=== PATIENT | male | born 1940 | race Caucasian/White ===

== ENCOUNTER 2018-09-09 11:12 | Inpatient (IN) ==
[2018-09-09] MEDS ORDERED: PANTOPRAZOLE 40 MG VIAL IV STA (11:33)
[2018-09-09] MEDS ORDERED: SODIUM CHLORIDE 0.9% 500 ML IV STA (11:33)
[2018-09-09] MEDS ORDERED: ONDANSETRON 4 MG/2 ML VIAL IV STA (11:33)
[2018-09-09 12:54] LABS: Basophils % 0.4 % (0.0-0.8); Eosinophils % 0.4 % (0.00-10.9); Hemoglobin 7.6 GM/DL (14.0-18.0); Immature Granulocytes % 0.5 %; Immature Granulocytes Absolute 0.04 #; Lymphocytes # 0.8 10*3/uL (1.4-4.0); Lymphocytes % 9.6 % (21.2-54.2); Mean Corpuscular HGB Conc 31.7 GM/DL (32-36); Mean Corpuscular Hemoglobin 30 PG (27-34); Mean Corpuscular Volume 93.4 FL (87-102); Mean Platelet Volume 10.5 FL (9.6-12.0); Monocytes # 0.6 10*3/uL (0.11-0.8); Neutrophils # 6.4 10*3/uL (1.4-7.4); Neutrophils % 82.1 % (38.7-73.9); Platelet Count 184 T/CUMM (130-400); Red Blood Count 2.57 MC/CUMM (3.8-5.5); Red Cell Distribution Width 14.6 % (9.3-17.3); White Blood Count 7.8 T/CUMM (4-12)
[2018-09-09 13:05] LABS: INR 1.4; Partial Thromboplastin Time 25.4 SECS (0-40)
[2018-09-09 13:13] LABS: Albumin 3.1 G/DL (3.4-5.0); Bilirubin,Total 0.8 MG/DL (0.2-1.0); Calcium 7.9 MG/DL (8.5-10.1); Osmolality,Calculated 275.9 MOS/KG (273-304); Total Protein 5.6 G/DL (6.4-8.3)
[2018-09-09 13:18] LABS: Potassium 6.1 MMOL/L (3.5-5.1)
[2018-09-09] MEDS ORDERED: DEXTROSE 50% 25 GM/50 ML VIAL IV STA (13:21)
[2018-09-09] MEDS ORDERED: INSULIN REGULAR 100 UNIT/ML IV STA (13:21)
[2018-09-09] MEDS ORDERED: SODIUM BICARBONATE 50 MEQ/50 ML VIAL IV STA (13:24)
[2018-09-09] MEDS ORDERED: DEXTROSE 50% 25 GM/50 ML SYRINGE IV ONE (13:43)
[2018-09-09] MEDS ORDERED: SODIUM BICARBONATE 50 MEQ/50 ML SYRINGE IV ONE (13:43)
[2018-09-09] MEDS ORDERED: ONDANSETRON 4 MG/2 ML VIAL IV PRN (14:36)
[2018-09-09] MEDS: SODIUM CHLORIDE 0.9% 1,000 ML IV SCH (15:28)
[2018-09-09 15:36] LABS: % Iron Saturation 4.3 % (18-50); Ferritin 39.5 ng/ml (26-388)
[2018-09-09 20:13] LABS: Hematocrit 20.9 VOL% (42.0-52.0); Hemoglobin 6.5 GM/DL (14.0-18.0)
[2018-09-09] MEDS ORDERED: SODIUM CHLORIDE 0.9% 1,000 ML IV PRN (20:23)
[2018-09-09] MEDS: CARVEDILOL 6.25 MG TABLET PO SCH (21:07)
[2018-09-10 05:57] LABS: Basophils % 0.4 % (0.0-0.8); Eosinophils # 0.2 10*3/uL (0.0-0.87); Eosinophils % 2.4 % (0.00-10.9); Hematocrit 24.8 VOL% (42.0-52.0); Immature Granulocytes % 0.4 %; Immature Granulocytes Absolute 0.03 #; Lymphocytes % 12.8 % (21.2-54.2); Mean Corpuscular HGB Conc 32.3 GM/DL (32-36); Mean Corpuscular Hemoglobin 30 PG (27-34); Mean Corpuscular Volume 92.2 FL (87-102); Mean Platelet Volume 11.8 FL (9.6-12.0); Monocytes # 1.4 10*3/uL (0.11-0.8); Monocytes % 17.4 % (1.7-12.7); Neutrophils # 5.4 10*3/uL (1.4-7.4); Neutrophils % 66.6 % (38.7-73.9); Platelet Count 159 T/CUMM (130-400); Red Blood Count 2.69 MC/CUMM (3.8-5.5); Red Cell Distribution Width 15.7 % (9.3-17.3); White Blood Count 8.1 T/CUMM (4-12)
[2018-09-10 06:15] LABS: Eosinophils 4 % (0-10); Hypochromasia 1+; Lymphocytes 11 % (20-55); Platelet Estimate Normal; Segmented Neutrophils 77 % (50-85); Total Cells Counted 100
[2018-09-10 07:56] LABS: Calcium 8.1 MG/DL (8.5-10.1); Osmolality,Calculated 277.5 MOS/KG (273-304); Potassium 5.8 MMOL/L (3.5-5.1)
[2018-09-10 08:01] LABS: Troponin I 0.195 NG/ML (0.00-0.045)
[2018-09-10] MEDS: SODIUM CHLORIDE 0.9% 1,000 ML IV SCH ×2 (09:50→23:56)
[2018-09-10] MEDS: LOSARTAN 25 MG TABLET PO SCH (09:51)
[2018-09-10] MEDS: ASPIRIN EC 81 MG TABLET PO SCH (09:51)
[2018-09-10] MEDS: CARVEDILOL 6.25 MG TABLET PO SCH ×4 (09:51→21:29)
[2018-09-10] MEDS: BUMETANIDE 1 MG TABLET PO SCH (09:51)
[2018-09-10] MEDS: PANTOPRAZOLE 40 MG TABLET PO SCH (09:52)
[2018-09-10 14:03] LABS: Hematocrit 23.8 VOL% (42.0-52.0); Hemoglobin 7.5 GM/DL (14.0-18.0)
[2018-09-10] MEDS ORDERED: SODIUM CHLORIDE 0.9% 1,000 ML IV PRN (14:24)
[2018-09-11 01:32] LABS: Basophils % 0.5 % (0.0-0.8); Eosinophils # 0.3 10*3/uL (0.0-0.87); Eosinophils % 3.1 % (0.00-10.9); Hematocrit 30.7 VOL% (42.0-52.0); Hemoglobin 9.4 GM/DL (14.0-18.0); Immature Granulocytes % 0.6 %; Immature Granulocytes Absolute 0.05 #; Lymphocytes # 1.1 10*3/uL (1.4-4.0); Mean Corpuscular HGB Conc 30.6 GM/DL (32-36); Mean Corpuscular Hemoglobin 29 PG (27-34); Mean Corpuscular Volume 94.8 FL (87-102); Mean Platelet Volume 9.7 FL (9.6-12.0); Monocytes # 1.9 10*3/uL (0.11-0.8); Monocytes % 21.8 % (1.7-12.7); Neutrophils # 5.5 10*3/uL (1.4-7.4); Platelet Count 198 T/CUMM (130-400); Red Blood Count 3.24 MC/CUMM (3.8-5.5); Red Cell Distribution Width 15.7 % (9.3-17.3); White Blood Count 8.8 T/CUMM (4-12)
[2018-09-11 01:33] LABS: Hematocrit 30.9 VOL% (42.0-52.0); Hemoglobin 9.5 GM/DL (14.0-18.0)
[2018-09-11 01:48] LABS: Calcium 7.7 MG/DL (8.5-10.1); Osmolality,Calculated 285.2 MOS/KG (273-304); Potassium 5.5 MMOL/L (3.5-5.1)
[2018-09-11 02:16] LABS: Lymphocytes 9 % (20-55); Metamyelocytes 1 %; Platelet Estimate Adequate; Segmented Neutrophils 82 % (50-85); Total Cells Counted 100
[2018-09-11 02:17] LABS: Hypochromasia Slight; Polychromasia Few
[2018-09-11] MEDS: SODIUM CHLORIDE 0.9% 1,000 ML IV SCH (05:41)
[2018-09-11] MEDS: BUMETANIDE 1 MG TABLET PO SCH (08:57)
[2018-09-11] MEDS: PANTOPRAZOLE 40 MG TABLET PO SCH (08:57)
[2018-09-11] MEDS: CARVEDILOL 6.25 MG TABLET PO SCH ×2 (08:58→20:51)
[2018-09-11] MEDS: ASPIRIN EC 81 MG TABLET PO SCH (08:58)
[2018-09-11] MEDS: LOSARTAN 25 MG TABLET PO SCH (08:59)
[2018-09-11] MEDS ORDERED: INFLUENZA VIRUS VACCINE 0.5 ML SYRINGE IM ONE (09:00)
[2018-09-11] MEDS ORDERED: FUROSEMIDE 40 MG/4 ML VIAL IV ONE (10:46)
[2018-09-11] MEDS ORDERED: FUROSEMIDE 20 MG/2 ML VIAL ONE (11:50)
[2018-09-11] MEDS: FUROSEMIDE 40 MG/4 ML VIAL IV SCH (17:28)
[2018-09-12 06:09] LABS: Basophils % 0.3 % (0.0-0.8); Eosinophils # 0.1 10*3/uL (0.0-0.87); Eosinophils % 1.1 % (0.00-10.9); Hematocrit 31.5 VOL% (42.0-52.0); Hemoglobin 9.4 GM/DL (14.0-18.0); Immature Granulocytes % 0.8 %; Immature Granulocytes Absolute 0.06 #; Lymphocytes # 0.9 10*3/uL (1.4-4.0); Lymphocytes % 10.9 % (21.2-54.2); Mean Corpuscular HGB Conc 29.8 GM/DL (32-36); Mean Corpuscular Hemoglobin 29 PG (27-34); Mean Corpuscular Volume 97.8 FL (87-102); Mean Platelet Volume 9.8 FL (9.6-12.0); Monocytes # 1.3 10*3/uL (0.11-0.8); Monocytes % 16.6 % (1.7-12.7); NRBC # 0.03 10*3/uL; Neutrophils # 5.6 10*3/uL (1.4-7.4); Neutrophils % 70.3 % (38.7-73.9); Platelet Count 209 T/CUMM (130-400); Red Blood Count 3.22 MC/CUMM (3.8-5.5); Red Cell Distribution Width 15.6 % (9.3-17.3); White Blood Count 7.9 T/CUMM (4-12)
[2018-09-12 06:40] LABS: Albumin 2.9 G/DL (3.4-5.0); Bilirubin,Total 0.5 MG/DL (0.2-1.0); Calcium 7.6 MG/DL (8.5-10.1); Osmolality,Calculated 283.5 MOS/KG (273-304)
[2018-09-12 06:44] LABS: Potassium 6.1 MMOL/L (3.5-5.1)
[2018-09-12] MEDS ORDERED: SODIUM POLYSTYRENE SULFATE 15 GM/60 ML BOTTLE PO ONE ×2 (06:48→15:37)
[2018-09-12 06:56] LABS: Eosinophils 1 % (0-10); Hypochromasia 1+; Lymphocytes 10 % (20-55); Ovalocytes Slight; Platelet Estimate Adequate; Segmented Neutrophils 73 % (50-85); Total Cells Counted 100
[2018-09-12] MEDS: FUROSEMIDE 40 MG/4 ML VIAL IV SCH ×2 (08:24→16:39)
[2018-09-12] MEDS: CARVEDILOL 6.25 MG TABLET PO SCH (08:28)
[2018-09-12] MEDS: ASPIRIN EC 81 MG TABLET PO SCH (08:28)
[2018-09-12] MEDS: PANTOPRAZOLE 40 MG TABLET PO SCH (08:29)
[2018-09-12] MEDS ORDERED: LACTULOSE 320 GM/480 ML BOTTLE RECTAL ONE (09:58)
[2018-09-12 11:09] LABS: Troponin I 0.613 NG/ML (0.00-0.045)
[2018-09-12] MEDS: LACTULOSE 20 GM/30 ML UDCUP PO SCH ×4 (11:46→22:48)
[2018-09-12] MEDS ORDERED: DOBUTamine 500 MG/250 ML PREMIX IV PRN ×2 (12:00→16:48)
[2018-09-12] MEDS: PHENYLEPHRINE DRIP 40 MG/250 ML PREMIX IV PRN ×2 (14:30→18:46)
[2018-09-12 16:33] LABS: Hematocrit 32.8 VOL% (42.0-52.0); Hemoglobin 9.6 GM/DL (14.0-18.0)
[2018-09-12] MEDS: DOBUTamine 500 MG/250 ML PREMIX IV SCH (17:14)
[2018-09-12 17:16] LABS: ABG Base Excess 1.4 MMOL/L (-2.5-2.5); ABG HCO3 31.9 MMOL/L (20-26); ABG Oxygen Saturation 99.5 % (95-100); ABG PO2 325.9 MM HG (80-95); ABG TCO2 34.7 MMOL/L (23-27)
[2018-09-12 17:18] LABS: ABG PH 7.164 (7.35-7.45)
[2018-09-12 17:19] LABS: ABG PCO2 90.8 MM HG (35-48)
[2018-09-12] MEDS ORDERED: SODIUM BICARBONATE 50 MEQ/50 ML SYRINGE IV ONE ×2 (17:23→17:24)
[2018-09-12] MEDS ORDERED: PROPOFOL 1,000 MG/100 ML BOTTLE IV ONE (17:44)
[2018-09-12] MEDS ORDERED: ETOMIDATE 20 MG/10 ML VIAL IV ONE (17:45)
[2018-09-12] MEDS ORDERED: VECURONIUM 10 MG VIAL IV ONE (17:45)
[2018-09-12 17:46] LABS: Apearance,Urine CLOUDY (Clear); Bilirubin,Urine Negative (Negative); Blood, Urine Large mg/dL (Negative); Glucose,Urine (UA) Negative (Negative); Ketones,Urine Negative (Negative); Mucus,Urine Occasional /LPF (Occasional); Nitrite,Urine Negative (Negative); Protein,Urine Negative; RBC,Urine 441 /HPF (0-4); Squamous Epithelial Cell,Urine Occasional /HPF (0-10); Urine Color Yellow (Yellow); Urine Specific Gravity 1.011 (1.001-1.035); Urine Urobilinogen < 2.0 EU/DL (0.2-1.0); WBC,Urine 140 /HPF (0-6)
[2018-09-12 17:57] LABS: Albumin 2.9 G/DL (3.4-5.0); Bilirubin,Total 0.6 MG/DL (0.2-1.0); Calcium 7.6 MG/DL (8.5-10.1); Osmolality,Calculated 289.2 MOS/KG (273-304); Potassium 5.5 MMOL/L (3.5-5.1)
[2018-09-12] MEDS: PROPOFOL 1,000 MG/100 ML BOTTLE IV SCH ×2 (17:59→21:55)
[2018-09-12 18:49] LABS: ABG Base Excess 4.3 MMOL/L (-2.5-2.5); ABG HCO3 32.7 MMOL/L (20-26); ABG Oxygen Saturation 99.5 % (95-100); ABG PH 7.265 (7.35-7.45); ABG PO2 380.1 MM HG (80-95); Allen Test Positive; Pt O2 Delivery Device Ventilator
[2018-09-12 18:50] LABS: ABG PCO2 73.8 MM HG (35-48)
[2018-09-12] MEDS: cefTRIAXone 1,000 MG in SYRINGE 1 EACH IV SCH (20:32)
[2018-09-12 21:38] LABS: Basophils % 0.2 % (0.0-0.8); Eosinophils % 0.4 % (0.00-10.9); Hematocrit 28.3 VOL% (42.0-52.0); Hemoglobin 8.7 GM/DL (14.0-18.0); Immature Granulocytes % 0.9 %; Lymphocytes # 0.8 10*3/uL (1.4-4.0); Lymphocytes % 6.8 % (21.2-54.2); Mean Corpuscular HGB Conc 30.7 GM/DL (32-36); Mean Corpuscular Hemoglobin 29 PG (27-34); Mean Corpuscular Volume 94.6 FL (87-102); Mean Platelet Volume 9.7 FL (9.6-12.0); Monocytes % 17.8 % (1.7-12.7); NRBC # 0.07 10*3/uL; Neutrophils # 8.3 10*3/uL (1.4-7.4); Neutrophils % 73.9 % (38.7-73.9); Platelet Count 205 T/CUMM (130-400); Red Blood Count 2.99 MC/CUMM (3.8-5.5); Red Cell Distribution Width 15.2 % (9.3-17.3); White Blood Count 11.2 T/CUMM (4-12)
[2018-09-12 22:39] LABS: Lymphocytes 9 % (20-55); Nucleated Red Blood Cells 2 (0-5); Platelet Estimate Adequate; Segmented Neutrophils 85 % (50-85); Total Cells Counted 100
[2018-09-12 22:40] LABS: Polychromasia Slight
[2018-09-13] MEDS: PHENYLEPHRINE DRIP 40 MG/250 ML PREMIX IV PRN (01:51)
[2018-09-13] MEDS: LACTULOSE 20 GM/30 ML UDCUP PO SCH ×3 (01:59→11:45)
[2018-09-13] MEDS: PROPOFOL 1,000 MG/100 ML BOTTLE IV SCH ×5 (02:31→23:28)
[2018-09-13 04:15] LABS: Pt O2 Delivery Device Ventilator
[2018-09-13 04:16] LABS: ABG HCO3 31.1 MMOL/L (20-26); ABG Oxygen Saturation 98.9 % (95-100); ABG PCO2 32.9 MM HG (35-48); ABG PO2 187.6 MM HG (80-95); ABG TCO2 32.2 MMOL/L (23-27)
[2018-09-13 04:17] LABS: ABG PH 7.594 (7.35-7.45)
[2018-09-13 04:40] LABS: Basophils % 0.3 % (0.0-0.8); Eosinophils # 0.2 10*3/uL (0.0-0.87); Eosinophils % 2.4 % (0.00-10.9); Hematocrit 25.9 VOL% (42.0-52.0); Hemoglobin 8.3 GM/DL (14.0-18.0); Immature Granulocytes % 0.8 %; Immature Granulocytes Absolute 0.07 #; Lymphocytes % 11.1 % (21.2-54.2); Mean Corpuscular Hemoglobin 29 PG (27-34); Mean Corpuscular Volume 91.2 FL (87-102); Monocytes # 1.7 10*3/uL (0.11-0.8); Monocytes % 19.7 % (1.7-12.7); NRBC # 0.02 10*3/uL; Neutrophils # 5.8 10*3/uL (1.4-7.4); Neutrophils % 65.7 % (38.7-73.9); Platelet Count 193 T/CUMM (130-400); Red Blood Count 2.84 MC/CUMM (3.8-5.5); Red Cell Distribution Width 14.7 % (9.3-17.3); White Blood Count 8.9 T/CUMM (4-12)
[2018-09-13 05:00] LABS: Albumin 2.6 G/DL (3.4-5.0); Bilirubin,Total 0.9 MG/DL (0.2-1.0); Calcium 7.7 MG/DL (8.5-10.1); Osmolality,Calculated 291.7 MOS/KG (273-304); Potassium 3.6 MMOL/L (3.5-5.1); Total Protein 5.2 G/DL (6.4-8.3)
[2018-09-13 05:18] LABS: Eosinophils 1 % (0-10); Lymphocytes 9 % (20-55); Nucleated Red Blood Cells 2 (0-5); Segmented Neutrophils 85 % (50-85); Total Cells Counted 100
[2018-09-13 05:19] LABS: Hypochromasia 1+; Microcytosis 1+; Platelet Estimate Adequate; Polychromasia Few
[2018-09-13] MEDS: PANTOPRAZOLE 40 MG VIAL IV SCH (08:21)
[2018-09-13] MEDS: FUROSEMIDE 40 MG/4 ML VIAL IV SCH (08:23)
[2018-09-13] MEDS ORDERED: ASPIRIN CHEW 81 MG TABLET PO SCH (09:00)
[2018-09-13] MEDS ORDERED: DIGOXIN 0.5 MG/2 ML AMP IV ONE (16:44)
[2018-09-13] MEDS: DOBUTamine 500 MG/250 ML PREMIX IV SCH (17:59)
[2018-09-13] MEDS: cefTRIAXone 1,000 MG in SYRINGE 1 EACH IV SCH (20:33)
[2018-09-14] MEDS ORDERED: MORPHINE 4 MG/1 ML VIAL IV ONE (02:54)
[2018-09-14 03:25] LABS: ABG Base Excess 13.3 MMOL/L (-2.5-2.5); ABG HCO3 37.1 MMOL/L (20-26); ABG Oxygen Saturation 94.7 % (95-100); ABG PCO2 37.8 MM HG (35-48); ABG PO2 61.2 MM HG (80-95); ABG TCO2 33.6 MMOL/L (23-27); Allen Test Positive; Pt O2 Delivery Device Ventilator
[2018-09-14 03:38] LABS: ABG PH 7.591 (7.35-7.45)
[2018-09-14] MEDS: PROPOFOL 1,000 MG/100 ML BOTTLE IV SCH ×5 (04:07→23:37)
[2018-09-14 04:13] LABS: Basophils % 0.3 % (0.0-0.8); Eosinophils # 0.4 10*3/uL (0.0-0.87); Eosinophils % 3.8 % (0.00-10.9); Hematocrit 26.3 VOL% (42.0-52.0); Hemoglobin 8.4 GM/DL (14.0-18.0); Immature Granulocytes % 0.4 %; Immature Granulocytes Absolute 0.04 #; Lymphocytes # 0.9 10*3/uL (1.4-4.0); Lymphocytes % 9.2 % (21.2-54.2); Mean Corpuscular HGB Conc 31.9 GM/DL (32-36); Mean Corpuscular Hemoglobin 29 PG (27-34); Mean Corpuscular Volume 89.8 FL (87-102); Mean Platelet Volume 9.9 FL (9.6-12.0); Monocytes # 1.9 10*3/uL (0.11-0.8); Monocytes % 20.4 % (1.7-12.7); Neutrophils # 6.2 10*3/uL (1.4-7.4); Neutrophils % 65.9 % (38.7-73.9); Platelet Count 204 T/CUMM (130-400); Red Blood Count 2.93 MC/CUMM (3.8-5.5); Red Cell Distribution Width 14.6 % (9.3-17.3); White Blood Count 9.4 T/CUMM (4-12)
[2018-09-14 04:22] LABS: Calcium 7.5 MG/DL (8.5-10.1); Osmolality,Calculated 293.3 MOS/KG (273-304); Potassium 2.8 MMOL/L (3.5-5.1)
[2018-09-14 04:26] LABS: Prealbumin 7.4 MG/DL (20-40)
[2018-09-14 05:07] LABS: Eosinophils 7 % (0-10); Lymphocytes 12 % (20-55); Segmented Neutrophils 65 % (50-85); Total Cells Counted 100
[2018-09-14 05:08] LABS: Hypochromasia 1+; Platelet Estimate Normal
[2018-09-14] MEDS: POTASSIUM CHLORIDE RIDER 20 MEQ in PREMIX 1 EACH IV PRN ×3 (05:12→23:36)
[2018-09-14] MEDS ORDERED: POTASSIUM CHLORIDE RIDER 10 MEQ in PREMIX 1 EACH IV ONE (08:57)
[2018-09-14] MEDS ORDERED: POTASSIUM CHLORIDE RIDER 100 ML IV ONE (09:03)
[2018-09-14] MEDS: FUROSEMIDE 40 MG/4 ML VIAL IV SCH (09:07)
[2018-09-14] MEDS: PANTOPRAZOLE 40 MG VIAL IV SCH (09:07)
[2018-09-14 09:39] LABS: Pt O2 Delivery Device Ventilator
[2018-09-14 09:40] LABS: ABG Base Excess 14.1 MMOL/L (-2.5-2.5); ABG HCO3 37.9 MMOL/L (20-26); ABG Oxygen Saturation 99.3 % (95-100); ABG PCO2 41.7 MM HG (35-48); ABG PH 7.566 (7.35-7.45); ABG TCO2 34.8 MMOL/L (23-27)
[2018-09-14] MEDS: DOBUTamine 500 MG/250 ML PREMIX IV SCH (15:41)
[2018-09-14] MEDS: cefTRIAXone 1,000 MG in SYRINGE 1 EACH IV SCH (20:21)
[2018-09-15 03:58] LABS: ABG Base Excess 13.9 MMOL/L (-2.5-2.5); ABG HCO3 37.8 MMOL/L (20-26); ABG Oxygen Saturation 98.5 % (95-100); ABG PCO2 45.5 MM HG (35-48); ABG PH 7.534 (7.35-7.45); ABG PO2 92.9 MM HG (80-95); ABG TCO2 35.2 MMOL/L (23-27)
[2018-09-15 04:46] LABS: Basophils % 0.2 % (0.0-0.8); Eosinophils # 0.3 10*3/uL (0.0-0.87); Hematocrit 28.9 VOL% (42.0-52.0); Hemoglobin 8.9 GM/DL (14.0-18.0); Immature Granulocytes % 1.1 %; Immature Granulocytes Absolute 0.12 #; Lymphocytes # 0.7 10*3/uL (1.4-4.0); Lymphocytes % 6.3 % (21.2-54.2); Mean Corpuscular HGB Conc 30.8 GM/DL (32-36); Mean Corpuscular Hemoglobin 28 PG (27-34); Mean Platelet Volume 10.1 FL (9.6-12.0); Monocytes # 1.9 10*3/uL (0.11-0.8); Monocytes % 17.7 % (1.7-12.7); Neutrophils # 7.6 10*3/uL (1.4-7.4); Neutrophils % 71.7 % (38.7-73.9); Platelet Count 217 T/CUMM (130-400); Red Blood Count 3.14 MC/CUMM (3.8-5.5); Red Cell Distribution Width 14.7 % (9.3-17.3); White Blood Count 10.7 T/CUMM (4-12)
[2018-09-15 05:09] LABS: Calcium 7.5 MG/DL (8.5-10.1); Osmolality,Calculated 294.1 MOS/KG (273-304); Potassium 3.6 MMOL/L (3.5-5.1)
[2018-09-15] MEDS: PROPOFOL 1,000 MG/100 ML BOTTLE IV SCH ×3 (05:10→19:13)
[2018-09-15 05:28] LABS: Band Neutrophils 3 % (0-10); Eosinophils 3 % (0-10); Hypochromasia 2+; Lymphocytes 7 % (20-55); Platelet Estimate Normal; Segmented Neutrophils 73 % (50-85); Total Cells Counted 100
[2018-09-15] MEDS: POTASSIUM CHLORIDE RIDER 20 MEQ in PREMIX 1 EACH IV PRN (06:15)
[2018-09-15] MEDS: PANTOPRAZOLE 40 MG VIAL IV SCH (08:21)
[2018-09-15] MEDS: FUROSEMIDE 40 MG/4 ML VIAL IV SCH (08:22)
[2018-09-15 10:55] LABS: Pt O2 Delivery Device Ventilator
[2018-09-15 10:56] LABS: ABG Base Excess 12.3 MMOL/L (-2.5-2.5); ABG HCO3 36.1 MMOL/L (20-26); ABG Oxygen Saturation 98.4 % (95-100); ABG PCO2 65.7 MM HG (35-48); ABG TCO2 36.4 MMOL/L (23-27)
[2018-09-15] MEDS ORDERED: MAGNESIUM SULF RIDER 2 GM in PREMIX 1 EACH IV PRN (16:34)
[2018-09-15] MEDS ORDERED: MAGNESIUM SULF RIDER 4 GM in PREMIX 1 EACH IV PRN (16:34)
[2018-09-15] MEDS: VANCOMYCIN INJ 1,500 MG in SODIUM CHLORIDE 0.9% 500 ML IV SCH (16:35)
[2018-09-15] MEDS ORDERED: MORPHINE 4 MG/1 ML VIAL IV PRN (19:12)
[2018-09-15] MEDS: cefTRIAXone 1,000 MG in SYRINGE 1 EACH IV SCH (19:50)
[2018-09-16 02:59] LABS: ABG HCO3 38.9 MMOL/L (20-26); ABG Oxygen Saturation 98.4 % (95-100); ABG PCO2 46.6 MM HG (35-48); ABG PH 7.537 (7.35-7.45); ABG PO2 93.1 MM HG (80-95); ABG TCO2 36.2 MMOL/L (23-27); Allen Test Positive; Pt O2 Delivery Device Ventilator
[2018-09-16 03:54] LABS: Basophils % 0.2 % (0.0-0.8); Eosinophils # 0.3 10*3/uL (0.0-0.87); Eosinophils % 2.1 % (0.00-10.9); Hematocrit 28.2 VOL% (42.0-52.0); Hemoglobin 8.7 GM/DL (14.0-18.0); Immature Granulocytes % 0.4 %; Immature Granulocytes Absolute 0.05 #; Lymphocytes # 0.7 10*3/uL (1.4-4.0); Lymphocytes % 5.3 % (21.2-54.2); Mean Corpuscular HGB Conc 30.9 GM/DL (32-36); Mean Corpuscular Hemoglobin 29 PG (27-34); Mean Corpuscular Volume 93.7 FL (87-102); Mean Platelet Volume 10.7 FL (9.6-12.0); Monocytes # 2.1 10*3/uL (0.11-0.8); Monocytes % 17.2 % (1.7-12.7); Neutrophils # 9.1 10*3/uL (1.4-7.4); Neutrophils % 74.8 % (38.7-73.9); Platelet Count 219 T/CUMM (130-400); Red Blood Count 3.01 MC/CUMM (3.8-5.5); Red Cell Distribution Width 14.7 % (9.3-17.3); White Blood Count 12.2 T/CUMM (4-12)
[2018-09-16 04:13] LABS: Calcium 7.4 MG/DL (8.5-10.1); Osmolality,Calculated 297.7 MOS/KG (273-304); Potassium 3.6 MMOL/L (3.5-5.1)
[2018-09-16 04:48] LABS: Eosinophils 2 % (0-10); Lymphocytes 7 % (20-55); Nucleated Red Blood Cells 1 (0-5); Segmented Neutrophils 78 % (50-85); Total Cells Counted 100
[2018-09-16 04:49] LABS: Hypochromasia 1+; Ovalocytes Slight; Platelet Estimate Adequate
[2018-09-16] MEDS: POTASSIUM CHLORIDE RIDER 20 MEQ in PREMIX 1 EACH IV PRN (05:16)
[2018-09-16] MEDS: PROPOFOL 1,000 MG/100 ML BOTTLE IV SCH ×2 (06:45→18:21)
[2018-09-16] MEDS: PANTOPRAZOLE 40 MG VIAL IV SCH (09:12)
[2018-09-16] MEDS: FUROSEMIDE 40 MG/4 ML VIAL IV SCH (09:13)
[2018-09-16] MEDS: VANCOMYCIN INJ 1,500 MG in SODIUM CHLORIDE 0.9% 500 ML IV SCH (16:25)
[2018-09-16] MEDS: cefTRIAXone 1,000 MG in SYRINGE 1 EACH IV SCH (19:49)
[2018-09-17] MEDS: PROPOFOL 1,000 MG/100 ML BOTTLE IV SCH (00:34)
[2018-09-17 04:28] LABS: ABG Base Excess 11.5 MMOL/L (-2.5-2.5); ABG HCO3 35.3 MMOL/L (20-26); ABG Oxygen Saturation 99.3 % (95-100); ABG PH 7.455 (7.35-7.45); ABG TCO2 34.1 MMOL/L (23-27); Allen Test Positive; Pt O2 Delivery Device Ventilator
[2018-09-17 05:28] LABS: Basophils % 0.3 % (0.0-0.8); Eosinophils # 0.4 10*3/uL (0.0-0.87); Hematocrit 29.1 VOL% (42.0-52.0); Hemoglobin 8.7 GM/DL (14.0-18.0); Immature Granulocytes % 0.8 %; Immature Granulocytes Absolute 0.11 #; Lymphocytes # 0.6 10*3/uL (1.4-4.0); Lymphocytes % 3.8 % (21.2-54.2); Mean Corpuscular HGB Conc 29.9 GM/DL (32-36); Mean Corpuscular Hemoglobin 28 PG (27-34); Mean Corpuscular Volume 95.1 FL (87-102); Mean Platelet Volume 10.7 FL (9.6-12.0); Monocytes # 2.3 10*3/uL (0.11-0.8); Monocytes % 15.6 % (1.7-12.7); Neutrophils # 11.1 10*3/uL (1.4-7.4); Neutrophils % 76.5 % (38.7-73.9); Platelet Count 241 T/CUMM (130-400); Red Blood Count 3.06 MC/CUMM (3.8-5.5); Red Cell Distribution Width 14.8 % (9.3-17.3); White Blood Count 14.5 T/CUMM (4-12)
[2018-09-17 05:42] LABS: Calcium 7.6 MG/DL (8.5-10.1); Osmolality,Calculated 299.6 MOS/KG (273-304); Potassium 3.5 MMOL/L (3.5-5.1)
[2018-09-17 05:53] LABS: Eosinophils 6 % (0-10); Hypochromasia 1+; Lymphocytes 6 % (20-55); Platelet Estimate Adequate; Segmented Neutrophils 74 % (50-85); Total Cells Counted 100
[2018-09-17] MEDS: PANTOPRAZOLE 40 MG VIAL IV SCH (08:08)
[2018-09-17] MEDS: FUROSEMIDE 40 MG/4 ML VIAL IV SCH (08:08)
[2018-09-17] MEDS: POTASSIUM CHLORIDE RIDER 20 MEQ in PREMIX 1 EACH IV PRN (08:25)
[2018-09-17] MEDS: POTASSIUM CHLORIDE RIDER 10 MEQ in PREMIX 1 EACH IV PRN (11:00)
[2018-09-17] MEDS ORDERED: POTASSIUM CHLORIDE 20 MEQ/15 ML UDCUP PER TUBE ONE (11:45)
[2018-09-17] MEDS ORDERED: PHENOL 1.4% THROAT SPRAY 177 ML BOTTLE PO PRN (14:08)
[2018-09-17] MEDS: guaiFENesin 200 MG/10 ML UDCUP PO SCH ×2 (17:20→21:55)
[2018-09-17] MEDS: VANCOMYCIN INJ 1,500 MG in SODIUM CHLORIDE 0.9% 500 ML IV SCH (17:27)
[2018-09-17] MEDS ORDERED: acetaZOLAMIDE 250 MG TABLET PO SCH (21:00)
[2018-09-17] MEDS: cefTRIAXone 1,000 MG in SYRINGE 1 EACH IV SCH (21:54)
[2018-09-18 05:20] LABS: Basophils # 0.1 10*3/uL (0.0-0.2); Basophils % 0.4 % (0.0-0.8); Eosinophils # 0.4 10*3/uL (0.0-0.87); Eosinophils % 2.3 % (0.00-10.9); Hematocrit 29.6 VOL% (42.0-52.0); Hemoglobin 8.6 GM/DL (14.0-18.0); Immature Granulocytes % 0.7 %; Lymphocytes # 0.7 10*3/uL (1.4-4.0); Lymphocytes % 4.3 % (21.2-54.2); Mean Corpuscular HGB Conc 29.1 GM/DL (32-36); Mean Corpuscular Hemoglobin 29 PG (27-34); Mean Platelet Volume 10.9 FL (9.6-12.0); Monocytes % 13.4 % (1.7-12.7); Neutrophils # 11.9 10*3/uL (1.4-7.4); Neutrophils % 78.9 % (38.7-73.9); Platelet Count 278 T/CUMM (130-400); Red Blood Count 3.02 MC/CUMM (3.8-5.5); Red Cell Distribution Width 14.8 % (9.3-17.3)
[2018-09-18 05:22] LABS: Potassium 3.9 MMOL/L (3.5-5.1)
[2018-09-18 05:47] LABS: Band Neutrophils 1 % (0-10); Eosinophils 2 % (0-10); Lymphocytes 8 % (20-55); Segmented Neutrophils 77 % (50-85); Total Cells Counted 100
[2018-09-18 05:48] LABS: Hypochromasia 1+; Platelet Estimate Adequate
[2018-09-18] MEDS: POTASSIUM CHLORIDE RIDER 10 MEQ in PREMIX 1 EACH IV PRN (06:23)
[2018-09-18] MEDS: guaiFENesin 200 MG/10 ML UDCUP PO SCH ×4 (10:45→23:02)
[2018-09-18] MEDS: SIMVASTATIN 10 MG TABLET PO SCH (10:45)
[2018-09-18] MEDS: PANTOPRAZOLE 40 MG TABLET PO SCH (10:45)
[2018-09-18] MEDS: FUROSEMIDE 40 MG TABLET PO SCH (10:45)
[2018-09-18] MEDS: NON-FORMULARY MEDICATION (Umeclidinium Bromide [Incruse Ellipta] 1 PUFF) INH SCH (14:21)
[2018-09-18] MEDS: MAGNESIUM CHLORIDE 64 MG TABLET PO SCH (16:11)
[2018-09-18] MEDS: VANCOMYCIN INJ 1,500 MG in SODIUM CHLORIDE 0.9% 500 ML IV SCH (18:28)
[2018-09-18] MEDS: cefTRIAXone 1,000 MG in SYRINGE 1 EACH IV SCH (23:02)
[2018-09-18] MEDS: acetaZOLAMIDE 250 MG TABLET PO SCH (23:10)
[2018-09-19 04:39] LABS: Basophils # 0.1 10*3/uL (0.0-0.2); Basophils % 0.4 % (0.0-0.8); Eosinophils # 0.3 10*3/uL (0.0-0.87); Hematocrit 30.3 VOL% (42.0-52.0); Hemoglobin 8.6 GM/DL (14.0-18.0); Immature Granulocytes % 0.8 %; Immature Granulocytes Absolute 0.11 #; Lymphocytes # 0.8 10*3/uL (1.4-4.0); Lymphocytes % 5.6 % (21.2-54.2); Mean Corpuscular HGB Conc 28.4 GM/DL (32-36); Mean Corpuscular Hemoglobin 28 PG (27-34); Mean Corpuscular Volume 99.3 FL (87-102); Mean Platelet Volume 10.8 FL (9.6-12.0); Monocytes # 1.8 10*3/uL (0.11-0.8); Monocytes % 12.6 % (1.7-12.7); Neutrophils # 11.2 10*3/uL (1.4-7.4); Neutrophils % 78.6 % (38.7-73.9); Platelet Count 299 T/CUMM (130-400); Red Blood Count 3.05 MC/CUMM (3.8-5.5); Red Cell Distribution Width 15.1 % (9.3-17.3); White Blood Count 14.3 T/CUMM (4-12)
[2018-09-19 05:00] LABS: Hypochromasia Slight; Platelet Estimate Normal; Polychromasia Few
[2018-09-19 05:06] LABS: Calcium 8.4 MG/DL (8.5-10.1); Osmolality,Calculated 297.8 MOS/KG (273-304)
[2018-09-19 09:21] LABS: ABG Base Excess 5.3 MMOL/L (-2.5-2.5); ABG HCO3 29.1 MMOL/L (20-26); ABG Oxygen Saturation 92.5 % (95-100); ABG PCO2 66.4 MM HG (35-48); ABG PH 7.308 (7.35-7.45); ABG PO2 65.7 MM HG (80-95); ABG TCO2 30.9 MMOL/L (23-27)
[2018-09-19] MEDS ORDERED: CARVEDILOL 6.25 MG TABLET PO SCH (09:30)
[2018-09-19] MEDS: FUROSEMIDE 40 MG TABLET PO SCH (10:18)
[2018-09-19] MEDS: acetaZOLAMIDE 250 MG TABLET PO SCH (10:18)
[2018-09-19] MEDS: PANTOPRAZOLE 40 MG TABLET PO SCH (10:18)
[2018-09-19] MEDS: MAGNESIUM CHLORIDE 64 MG TABLET PO SCH (10:18)
[2018-09-19] MEDS: guaiFENesin 200 MG/10 ML UDCUP PO SCH ×2 (10:18→13:26)
[2018-09-19] MEDS: SIMVASTATIN 10 MG TABLET PO SCH (10:18)
[2018-09-19] MEDS: NON-FORMULARY MEDICATION (Umeclidinium Bromide [Incruse Ellipta] 1 PUFF) INH SCH (10:24)
[2018-09-19] MEDS ORDERED: methylPREDNISolone SOD SUC 40 MG/1 ML VIAL IV SCH (11:00)
[2018-09-19] MEDS ORDERED: ALBUTEROL/IPRATROPIUM 3 ML NEB RESP TX SCH (13:00)
[2018-09-19 15:57] VITALS: BP 112/63
== END 2018-09-19 16:00 | disposition home or self-care (01) | DRG 377 ==
LOC: N.ED 11:12 → N.EDINP 13:18 → SUATTDRO 13:18 → N.CC 14:11 → N.4E 09-10 11:43 → N.ICU 09-12 12:41 → N.TELES 09-18 14:52
PROVIDERS: ADMIT Internal Medicine; ATTEND Internal Medicine